=== PATIENT | male | born 1980 | race Caucasian/White ===

== ENCOUNTER 2020-09-30 04:52 | Emergency (ER) | payer BC ==
[2020-09-30 05:24] VITALS: BP 136/77; PULSE 78; TEMP 97.8; BMI 29.9
[2020-09-30] MEDS ORDERED: LIDOCAINE 5% TOPICAL PATCH TP ONE (05:30)
[2020-09-30] MEDS ORDERED: ACETAMINOPHEN 500 MG TABLET (FP) PO ONE (05:30)
[2020-09-30] MEDS ORDERED: LIDOCAINE 5% TOPICAL PATCH ONE (05:30)
[2020-09-30] MEDS ORDERED: ACETAMINOPHEN 325 MG TABLET (FP) ONE (05:30)
[2020-09-30] MEDS ORDERED: LIDOCAINE PATCH REMOVAL MC ONE (17:30)
== END 2020-09-30 06:49 | disposition home or self-care (01) ==
LOC: JER 04:52
DX: M25.461 Effusion, right knee (principal)
CPT/HCPCS: 73562-TC-RT-FY; 99283-25